=== PATIENT | female | born 1980 | race Two or more races ===

== ENCOUNTER 2019-02-22 13:26 | Inpatient (IN) | payer BC ==
[~2019-02-22] VITALS: Ht 157.5 cm; Wt 78.6 kg
[2019-02-22 13:30] VITALS: BP 138/74
--- NOTE | 2019-02-22 13:30 | NUR ---
ED Nurse Note: pt brought by RA from home due to abdominal pain aw n/v/d. s/p gallbladder revomval surgery abut 2 weeks ago. pt delivered baby 4 months ago. no breast feeding. abdominal pain started about 2 hrs ago. clear, bile vomiting noted. approximately 500ml. AAO x4. respirations even and non-labored noted. clammy skin noted. on classroom monitor. will wait for the further order.
[2019-02-22] MEDS ORDERED: Morphine Sulfate 4mg/ml Inj (IV USE ONLY) IVP ONE ×2 (13:45→15:15)
[2019-02-22] MEDS ORDERED: Pantoprazole Inj IVP ONE (13:45)
--- NOTE | 2019-02-22 13:45 | Emergency Room Report ---
History of Present Illness General Chief Complaint: Abdominal Pain Source: Patient Present Illness HPI Patient is a 38-year-old female who presented after increased upper abdominal pain. Patient reports having waxing and waning pain since approximate 3 hours ago. She reports having some hematemesis initially with some bilious vomiting. She had recent gallbladder surgery and had laparoscopic cholecystectomy at [facility]. Patient initially had been doing well postoperatively. Her surgery occurred 2 weeks ago on . Patient states that she had only been taking ibuprofen for pain intermittently. She denies any recent alcohol use. She denies prior history of hypertension or current breast-feeding. Patient had a baby approximately 4 months ago.Patient had been having postprandial diarrhea but denies any bloody stools other than on initial days postoperatively. Allergies: Coded Allergies: MEPERIDINE (Verified Allergy, Intermediate, Rash, 02/23/19) Patient History Past Medical History: see triage record Past Surgical History: paul Last Menstrual Period: 3 months ago Reviewed Nursing Documentation: PMH: Agreed; PSxH: Agreed Nursing Documentation-PMH Past Medical History: No History, Except For Hx Gastrointestinal Problems: Yes - Gallbladder removal 2 weeks ago Review of Systems All Other Systems: negative except mentioned in HPI Physical Exam Vital Signs Date Time Temp Pulse Resp B/P (MAP) Pulse Ox O2 Delivery O2 Flow Rate FiO2 02/22/19 13:24 97.5 76 22 136/98 (111) 99 Room Air Sp02 EP Interpretation: reviewed, normal General Appearance: normal inspection, alert, GCS 15, mild distress Head: atraumatic ENT: normal ENT inspection, hearing grossly normal, normal voice Neck: normal inspection, full range of motion, supple, no bony tend Respiratory: normal inspection, lungs clear, normal breath sounds, no respiratory distress, no retraction, no wheezing Cardiovascular #1: regular rate, rhythm, no edema Gastrointestinal: normal bowel sounds, soft, no guarding Genitourinary: no CVA tenderness Musculoskeletal: normal inspection, back normal, normal range of motion Neurologic: normal inspection, alert, oriented x3, responsive, agriculture instructor III-XII nml as tested, motor strength/tone normal, speech normal Psychiatric: normal inspection, judgement/insight normal, mood/affect normal Medical Decision Making Diagnostic Impression: Primary Impression: Abdominal pain Additional Impression: Pancreatitis due to common bile duct stone ER Course Patient presented for abdominal pain. Differential diagnoses included ischemic bowel, appendicitis, perforated viscus, abdominal aortic aneurysm, inferior myocardial infarction, viral gastroenteritis among others. Because of complexity of patient's case laboratory testing and imaging studies were ordered. Patient was noted to have recent surgery. She was noted to have some hematemesis after multiple episodes of emesis. Patient appears to have some evidence of tenderness to her abdomen.Laboratory testing showed some evidence of pancreatitis as well as elevated bilirubin level. Patient was noted to have significant pain was given IV narcotic pain medications as well as IV fluids. She is given IV antiemetics. Patient's hemoglobin was noted to be normal as well as her platelet count. Dr. Miguel Banda was contacted for inpatient management. Dr. Rodriguez was contacted for GI consult. Dr. House was contacted for surgical consult. Labs Test 02/22/19 13:41 02/22/19 14:30 White Blood Count 8.0 K/UL (4.8-10.8) Red Blood Count 5.03 M/UL (4.20-5.40) Hemoglobin 15.3 G/DL (12.0-16.0) Hematocrit 45.2 % (37.0-47.0) Mean Corpuscular Volume 90 FL (80-99) Mean Corpuscular Hemoglobin 30.5 PG (27.0-31.0) Mean Corpuscular Hemoglobin Concent 33.9 G/DL (32.0-36.0) Red Cell Distribution Width 11.2 % (11.6-14.8) Platelet Count 328 K/UL (150-450) Mean Platelet Volume 8.2 FL (6.5-10.1) Neutrophils (%) (Auto) 59.2 % (45.0-75.0) Lymphocytes (%) (Auto) 23.4 % (20.0-45.0) Monocytes (%) (Auto) 10.1 % (1.0-10.0) Eosinophils (%) (Auto) 6.0 % (0.0-3.0) Basophils (%) (Auto) 1.5 % (0.0-2.0) Prothrombin Time 10.1 SEC (9.30-11.50) Prothromb Time International Ratio 0.9 (0.9-1.1) Activated Partial Thromboplast Time 23 SEC (23-33) Sodium Level 141 MMOL/L (136-145) Potassium Level 4.0 MMOL/L (3.5-5.1) Chloride Level 104 MMOL/L (98-107) Carbon Dioxide Level 24 MMOL/L (21-32) Anion Gap 13 mmol/L (5-15) Blood Urea Nitrogen 16 mg/dL (7-18) Creatinine 0.8 MG/DL (0.55-1.30) Estimat Glomerular Filtration Rate > 60 mL/min (>60) Glucose Level 138 MG/DL (74-106) Calcium Level 10.1 MG/DL (8.5-10.1) Total Bilirubin 1.7 MG/DL (0.2-1.0) Direct Bilirubin 1.1 MG/DL (0.0-0.3) Aspartate Amino Transf (AST/SGOT) 651 U/L (15-37) Alanine Aminotransferase (ALT/SGPT) 905 U/L (12-78) Alkaline Phosphatase 404 U/L (46-116) Total Protein 8.2 G/DL (6.4-8.2) Albumin 4.1 G/DL (3.4-5.0) Globulin 4.1 g/dL Albumin/Globulin Ratio 1.0 (1.0-2.7) Lipase > 2000 U/L (73-393) Urine Color Yellow Urine Appearance Clear Urine pH 8 (4.5-8.0) Urine Specific [place] 1.010 (1.005-1.035) Urine Protein Negative (NEGATIVE) Urine Glucose (UA) Negative (NEGATIVE) Urine Ketones Negative (NEGATIVE) Urine Blood Negative (NEGATIVE) Urine Nitrite Negative (NEGATIVE) Urine Bilirubin Negative (NEGATIVE) Urine Urobilinogen Normal MG/DL (0.0-1.0) Urine Leukocyte Esterase Negative (NEGATIVE) Urine HCG, Qualitative Negative (NEGATIVE) Last Vital Signs Date Time Temp Pulse Resp B/P (MAP) Pulse Ox O2 Delivery O2 Flow Rate FiO2 02/22/19 13:24 97.5 76 22 136/98 (111) 99 Room Air Status: improved Disposition: ADMITTED INPATIENT Condition: Stable Scripts No Active Prescriptions or Reported Meds Mario Jacome MD Feb 22, 2019 13:45
[2019-02-22 13:48] LABS: BASOPHILS % (AUTO) 1.5 % (0.0-2.0); HEMATOCRIT 45.2 % (37.0-47.0); HEMOGLOBIN 15.3 G/DL (12.0-16.0); LYMPHOCYTES % (AUTO) 23.4 % (20.0-45.0); MEAN CORPUSCULAR VOLUME 90 FL (80-99); MONOCYTES % (AUTO) 10.1 % (1.0-10.0); NEUTROPHILS % (AUTO) 59.2 % (45.0-75.0); PLATELET COUNT 328 K/UL (150-450); RED BLOOD COUNT 5.03 M/UL (4.20-5.40); RED CELL DISTRIBUTION WIDTH 11.2 % (11.6-14.8)
[2019-02-22 13:57] LABS: ANION GAP 13 mmol/L (5-15); BLOOD UREA NITROGEN 16 mg/dL (7-18); CALCIUM 10.1 MG/DL (8.5-10.1); CARBON DIOXIDE 24 MMOL/L (21-32); CHLORIDE 104 MMOL/L (98-107); CREATININE 0.8 MG/DL (0.55-1.30); SODIUM 141 MMOL/L (136-145)
[2019-02-22 13:59] LABS: INR 0.9 (0.9-1.1)
[2019-02-22] MEDS ORDERED: Gastrograffin 30ml ORAL ONE (14:00)
[2019-02-22] MEDS ORDERED: Isovue-300 100ml vial INJ PRN (14:00)
--- NOTE | 2019-02-22 14:05 | NUR ---
ED Nurse Note: US paged.
[2019-02-22 14:08] LABS: ALANINE AMINOTRANSFERASE 905 U/L (12-78); ALBUMIN 4.1 G/DL (3.4-5.0); ALKALINE PHOSPHATASE 404 U/L (46-116); ASPARTATE AMINO TRANSFERASE 651 U/L (15-37); BILIRUBIN,TOTAL 1.7 MG/DL (0.2-1.0)
[2019-02-22 14:09] LABS: BILIRUBIN,DIRECT 1.1 MG/DL (0.0-0.3)
[2019-02-22] MEDS ORDERED: Metoclopramide 10mg/2ml Inj IVP ONE (14:15)
--- NOTE | 2019-02-22 14:53 | NUR ---
ED Nurse Note: pt finished oral contrast.
[2019-02-22 15:12] LABS: APPEARANCE,URINE CLEAR; BILIRUBIN, URINE NEGATIVE (NEGATIVE); GLUCOSE, URINE (UA) NEGATIVE (NEGATIVE); KETONES,URINE NEGATIVE (NEGATIVE); LEUKOCYTE ESTERASE ,URINE NEGATIVE (NEGATIVE); NITRITE,URINE NEGATIVE (NEGATIVE); PH,URINE 8 (4.5-8.0); PROTEIN,URINE NEGATIVE (NEGATIVE); UROBILINOGEN,URINE NORMAL MG/DL (0.0-1.0)
[2019-02-22 15:16] LABS: COLOR,URINE YELLOW
--- NOTE | 2019-02-22 15:26 | NUR ---
ED Nurse Note: took all the belonings.
[2019-02-22 15:35] VITALS: BP 137/70
--- NOTE | 2019-02-22 15:39 | NUR ---
ED Nurse Note: pending CT scan. pt will be transfer to TELE after CT.
--- NOTE | 2019-02-22 15:55 | NUR ---
ED Nurse Note: reports given to TRAVIS Joyner.
--- NOTE | 2019-02-22 16:38 | NUR ---
ED Nurse Note: pt went to CT. will be transferred to TELE after CT done.
--- NOTE | 2019-02-22 16:53 | NUR ---
NURSE NOTES: Report received from MARIOLA Barajas RN. Pt. came in from ER via [email or web address]. IN RA. Pain 5/10. Morphine 4mg had been given at ER. playground monitor applied, gown changed. Made Pt. comfortable. Belongings checked, only prescription glasses and Iphone with Pt. at this time. Belongings list updated. signed and filed. Hospital rules communicated with Pt. R AC 20g IV patent, flushed and SL. Bed on lowest position, side rails upx2, brakes engaged. Call light within easy reach.
[2019-02-22 17:00] VITALS: BP 124/82
--- NOTE | 2019-02-22 17:33 | NUR ---
NURSE NOTES: Left a message to Dr. Banda regarding Pt's arrival. Waiting for a call back.
--- NOTE | 2019-02-22 17:50 | NUR ---
NURSE NOTES: second message left to Dr. Banda. Waiting for a call back for admission orders.
--- NOTE | 2019-02-22 18:17 | Diagnostic Imaging Report ---
Indication: Abdominal pain Technique: Continuous helical transaxial imaging of the abdomen and pelvis was obtained from the lung bases to the pubic symphysis during intravenous contrast administration. Coronal 2-D reformats were also obtained. Study obtained in a Siemens sensation [address] Automatic Exposure Control was utilized. Total Dose length Product (DLP): 916.[address] Dose Index Volume (CTDIvol): 18.4 mGy Comparison: None Findings: Lung bases are clear. Gallbladder is absent. The pancreas is enlarged and there is peripancreatic fluid and ill-defined soft tissue attenuation, consistent with acute pancreatitis. There is no biliary ductal dilatation identified. Liver appears slightly hypodense. The spleen, both kidneys and adrenal glands are unremarkable. There is a left ovarian cyst measuring approximately 3 cm. IMPRESSION: Acute pancreatitis. Status post cholecystectomy. Left ovarian cyst Fatty liver [facility] has communicated the preliminary results to the Emergency Department. Their findings are largely concordant with this report. The CT scanner at [facility] is accredited by the [employer] and the scans are performed using dose optimization techniques as appropriate to a performed exam including Automatic Exposure control.
--- NOTE | 2019-02-22 18:24 | Diagnostic Imaging Report ---
Indication: Abdominal pain. History of cholecystectomy 2 weeks earlier no previous studies for comparison. Technique: Grayscale and duplex Doppler imaging of the abdomen performed. Comparison: None Findings: The liver is echogenic. Doppler interrogation of the main portal vein shows patency with hepatopedal, monophasic flow. There is no biliary ductal dilatation identified. Gallbladder is absent. CBD is 4.4 mm. There demonstrated part of the aorta and IVC show no definite abnormalities. Pancreas is poorly seen due to bowel gas. Both kidneys appear unremarkable. There is no hydronephrosis. IMPRESSION: Fatty liver. Pancreas is not visualized well. CT showed evidence of acute pancreatitis. Please refer to the CT report.
[2019-02-22] MEDS ORDERED: Morphine Sulfate 2mg/ml Inj(IV/IM USE ONLY) IVP PRN (18:30)
[2019-02-22] MEDS ORDERED: Morphine Sulfate 4mg/ml Inj (IV USE ONLY) IVP PRN (18:30)
--- NOTE | 2019-02-22 19:35 | NUR ---
NURSE NOTES: Received patient from TRAVIS Joyner, patient in stable condition, AOx4,ambulatory, reports pain 6 on scale 0-10, upper abdomen, IV site on R AC G20, asymptomatic, intact, patent, bed lowest position, brakes on, call light within reach, will continue to monitor and reassess. Family at bed side.
--- NOTE | 2019-02-22 19:44 | NUR ---
NURSE NOTES: Dr. Rodriguez and Dr. House aware of consult.
--- NOTE | 2019-02-22 19:45 | NUR ---
HAND-OFF: Report given to TRAVIS Howard. Pt in stable condition. Family at bedside.
[2019-02-22 20:00] VITALS: BP 130/76
--- NOTE | 2019-02-22 20:13 | Consultation ---
History of Present Illness General Reason for Hospitalization: Abdominal Pain Present Illness HPI Patient is a 38-year-old female who presented after increased upper abdominal pain for 1 day. She reports having some hematemesis initially with some bilious vomiting. She had recent gallbladder surgery and had laparoscopic cholecystectomy at [facility] by Dr. Can. Patient initially had been doing well postoperatively. Her surgery occurred 2 weeks ago on . Patient states that she had only been taking ibuprofen for pain intermittently. She denies any recent alcohol use. She denies prior history of hypertension or current breast-feeding. Patient had a baby approximately 4 months ago.Patient had been having postprandial diarrhea but denies any bloody stools other than on initial days postoperatively. now with elevated lft's. CT and US as noted. surgery called to evaluate and assist with care Allergies: Coded Allergies: MEPERIDINE (Verified Allergy, Intermediate, Rash, 02/23/19) Medication History No Active Prescriptions or Reported Meds Patient History History Provided By: Patient, Medical Record, PMD Healthcare decision maker N Resuscitation status Advanced Directive on File No Past Medical/Surgical History Past Medical/Surgical History: (1) Abdominal pain (2) Pancreatitis due to common bile duct stone Review of Systems Review of Symptoms General ROS: no weight loss or fever Psychological ROS: no depression or mood changes, no memory loss Ophthalmic ROS: no visual changes or eye irritation ENT ROS: no nasal congestion, hearing loss, dizziness Allergy and Immunology ROS: no allergic symptoms or urticaria Hematological and Lymphatic ROS: no swollen glands, unusual bleeding or bruising Endocrine ROS: no polyuria, polydipsia, weight changes, temperature intolerance Respiratory ROS: no cough, shortness of breath, or wheezing Cardiovascular ROS: no chest pain or dyspnea on exertion Gastrointestinal ROS: denies abdominal pain, bright red blood in stool. Musculoskeletal ROS: no myalgias or arthralgias Neurological ROS: no TIA or stroke symptoms Dermatological ROS: no new or changing skin lesions, rashes or pruritis Physical Exam Physical Exam General appearance: alert, cooperative, no distress, appears stated age Head: Normocephalic, without obvious abnormality, atraumatic Eyes: conjunctivae/corneas clear. PERRL, EOM's intact. Fundi benign Throat: Lips, mucosa, and tongue normal. Teeth and gums normal Neck: supple, symmetrical, trachea midline, no adenopathy, thyroid: not enlarged, symmetric, no tenderness/mass/nodules, no carotid bruit and no JVD Lungs: clear to auscultation bilaterally Heart: regular rate and rhythm, S1, S2 normal, no murmur, click, rub or gallop Abdomen: soft, non-tender. Bowel sounds normal. No masses, no organomegaly Extremities: extremities normal, atraumatic, no cyanosis or edema Pulses: 2+ and symmetric Skin: Skin color, texture, turgor normal. No rashes or lesions Neurologic: Grossly normal Last 24 Hour Vital Signs Date Time Temp Pulse Resp B/P (MAP) Pulse Ox O2 Delivery O2 Flow Rate FiO2 02/22/19 17:34 Room Air 02/22/19 16:37 98.1 60 16 127/71 99 Room Air 02/22/19 15:35 98.3 65 15 137/70 100 Room Air 02/22/19 13:30 76 22 Room Air 02/22/19 13:30 98.1 71 19 138/74 100 Room Air 02/22/19 13:24 97.5 76 22 136/98 (111) 99 Room Air Laboratory Tests Test 02/22/19 13:41 02/22/19 14:30 White Blood Count 8.0 K/UL (4.8-10.8) Red Blood Count 5.03 M/UL (4.20-5.40) Hemoglobin 15.3 G/DL (12.0-16.0) Hematocrit 45.2 % (37.0-47.0) Mean Corpuscular Volume 90 FL (80-99) Mean Corpuscular Hemoglobin 30.5 PG (27.0-31.0) Mean Corpuscular Hemoglobin Concent 33.9 G/DL (32.0-36.0) Red Cell Distribution Width 11.2 % (11.6-14.8) L Platelet Count 328 K/UL (150-450) Mean Platelet Volume 8.2 FL (6.5-10.1) Neutrophils (%) (Auto) 59.2 % (45.0-75.0) Lymphocytes (%) (Auto) 23.4 % (20.0-45.0) Monocytes (%) (Auto) 10.1 % (1.0-10.0) H Eosinophils (%) (Auto) 6.0 % (0.0-3.0) H Basophils (%) (Auto) 1.5 % (0.0-2.0) Prothrombin Time 10.1 SEC (9.30-11.50) Prothromb Time International Ratio 0.9 (0.9-1.1) Activated Partial Thromboplast Time 23 SEC (23-33) Sodium Level 141 MMOL/L (136-145) Potassium Level 4.0 MMOL/L (3.5-5.1) Chloride Level 104 MMOL/L (98-107) Carbon Dioxide Level 24 MMOL/L (21-32) Anion Gap 13 mmol/L (5-15) Blood Urea Nitrogen 16 mg/dL (7-18) Creatinine 0.8 MG/DL (0.55-1.30) Estimat Glomerular Filtration Rate > 60 mL/min (>60) Glucose Level 138 MG/DL (74-106) H Calcium Level 10.1 MG/DL (8.5-10.1) Total Bilirubin 1.7 MG/DL (0.2-1.0) H Direct Bilirubin 1.1 MG/DL (0.0-0.3) H Aspartate Amino Transf (AST/SGOT) 651 U/L (15-37) H Alanine Aminotransferase (ALT/SGPT) 905 U/L (12-78) H Alkaline Phosphatase 404 U/L (46-116) H Total Protein 8.2 G/DL (6.4-8.2) Albumin 4.1 G/DL (3.4-5.0) Globulin 4.1 g/dL Albumin/Globulin Ratio 1.0 (1.0-2.7) Lipase > 2000 U/L (73-393) H Urine Color Yellow Urine Appearance Clear Urine pH 8 (4.5-8.0) Urine Specific [place] 1.010 (1.005-1.035) Urine Protein Negative (NEGATIVE) Urine Glucose (UA) Negative (NEGATIVE) Urine Ketones Negative (NEGATIVE) Urine Blood Negative (NEGATIVE) Urine Nitrite Negative (NEGATIVE) Urine Bilirubin Negative (NEGATIVE) Urine Urobilinogen Normal MG/DL (0.0-1.0) Urine Leukocyte Esterase Negative (NEGATIVE) Urine HCG, Qualitative Negative (NEGATIVE) Height (Feet): 5 Height (Inches): 2.00 Weight (Pounds): 169 Medications Current Medications Medications (Trade) Dose Ordered Sig/Misael Route PRN Reason Start Time Stop Time Status Last Admin Dose Admin Iopamidol (Isovue-300 100ml) 100 ml NOW PRN INJ Radiology Procedure 02/22/19 14:00 02/24/19 13:59 Morphine Sulfate (Morphine Sulfate) 2 mg Q4H PRN IVP PAIN 4-6 02/22/19 18:30 03/01/19 18:29 Morphine Sulfate (Morphine Sulfate) 4 mg Q3H PRN IVP Severe Pain (Pain Scale 7-10) 02/22/19 18:30 03/01/19 18:29 Ondansetron HCl (Zofran) 4 mg Q6H PRN IVP Nausea & Vomiting 02/22/19 18:30 03/24/19 18:29 Pantoprazole (Protonix) 40 mg DAILY IVP 02/23/19 09:00 03/25/19 08:59 Sodium Chloride 1,000 ml @ 100 mls/hr Q10H IV 02/22/19 18:30 03/24/19 18:29 02/22/19 18:30 Assessment/Plan Problem List: (1) Pancreatitis due to common bile duct stone ICD Codes: K85.90 - Acute pancreatitis without necrosis or infection, unspecified; K80.50 - Calculus of bile duct without cholangitis or cholecystitis without obstruction SNOMED: 63230884 (2) Abdominal pain Assessment & Plan: 30-year-old female with abdominal pain nausea vomiting. Leukocytosis normal. LFTs elevated. T bili elevated on admission. Elevated amylase and lipase indicative of pancreatitis. Ultrasound and CT noted. Potentially retained common bile duct stone which is passed or still present within the duct. Exam improved. Overall improved. No acute surgical intervention indicated at this time. Will discuss with GI as patient should probably have an MRCP to ensure common bile duct clear. Following that if necessary ERCP if stone present. If common duct cleared and improving can resume diet. Trend labs. We will follow with recommendations. Thank you for this consultation npo MRCP trend labs iv fluids will follow with recs thank you ICD Codes: R10.9 - Unspecified abdominal pain SNOMED: 44236521 Tino House Feb 22, 2019 20:13
[2019-02-23] VITALS: BP 135/69
[2019-02-23 03:52] VITALS: BP 96/62
--- NOTE | 2019-02-23 05:00 | NUR ---
NURSE NOTES: Received patient from tele. AAO x 4, on room air. pt is ambulatory, c/o abd gas pain. IV site intact and running NS 100ml/hr. Pt is on NPO. Bed locked, lowest position, alarm on, call light within reach. Will continue to monitor.
[2019-02-23] MEDS ORDERED: Morphine Sulfate 4mg/ml Inj (IV USE ONLY) IVP PRN (06:30)
[2019-02-23] MEDS ORDERED: Morphine Sulfate 2mg/ml Inj(IV/IM USE ONLY) IVP PRN (06:30)
--- NOTE | 2019-02-23 07:13 | NUR ---
NURSE NOTES: Left message Dr. Chase for abd gas pain. Waiting for call. Addendum: 02/23/19 at 0809 by THERESA PACE RN RN NURSE NOTES: Left message Dr. Banda, not Dr. Chase.
--- NOTE | 2019-02-23 07:40 | NUR ---
HAND-OFF: Report given to Sharona Sims RN.
--- NOTE | 2019-02-23 07:40 | NUR ---
NURSE NOTES: Received order from Dr. Banda. Simethicone 80mg quid prn abd gas pain.
--- NOTE | 2019-02-23 07:51 | NUR ---
pt in bed with no sob nor in any form of distress noted. Breathing regular and unlabored. denies pain at this time. kept NPO. will continue to monitor
[2019-02-23 08:00] LABS: BASOPHILS % (AUTO) 1.4 % (0.0-2.0); EOSINOPHILS % (AUTO) 3.7 % (0.0-3.0); HEMATOCRIT 40.2 % (37.0-47.0); HEMOGLOBIN 13.5 G/DL (12.0-16.0); LYMPHOCYTES % (AUTO) 17.4 % (20.0-45.0); MEAN CORPUSCULAR VOLUME 92 FL (80-99); MONOCYTES % (AUTO) 11.3 % (1.0-10.0); NEUTROPHILS % (AUTO) 66.2 % (45.0-75.0); PLATELET COUNT 259 K/UL (150-450); RED BLOOD COUNT 4.39 M/UL (4.20-5.40); RED CELL DISTRIBUTION WIDTH 11.9 % (11.6-14.8); WHITE BLOOD COUNT 8.3 K/UL (4.8-10.8)
[2019-02-23 08:35] LABS: ALANINE AMINOTRANSFERASE 562 U/L (12-78); ALBUMIN 3.4 G/DL (3.4-5.0); ALBUMIN/GLOBULIN RATIO 0.9 (1.0-2.7); ALKALINE PHOSPHATASE 320 U/L (46-116); AMYLASE 377 U/L (25-115); ANION GAP 11 mmol/L (5-15); ASPARTATE AMINO TRANSFERASE 201 U/L (15-37); BILIRUBIN,TOTAL 0.8 MG/DL (0.2-1.0); BLOOD UREA NITROGEN 16 mg/dL (7-18); CALCIUM 8.6 MG/DL (8.5-10.1); CARBON DIOXIDE 23 MMOL/L (21-32); CHLORIDE 108 MMOL/L (98-107); CREATININE 0.7 MG/DL (0.55-1.30); POTASSIUM 3.5 MMOL/L (3.5-5.1); SODIUM 142 MMOL/L (136-145)
[2019-02-23] MEDS: Simethicone 80mg tab ORAL PRN ×3 (08:53→22:35)
[2019-02-23] MEDS: Pantoprazole Inj IVP SCH (08:53)
[2019-02-23] MEDS ORDERED: Pantoprazole Inj IVP SCH (09:00)
--- NOTE | 2019-02-23 11:13 | GI Initial Consult Note ---
History of Present Illness General Date patient seen: Feb 23, 2019 Time patient seen: 11:11 Reason for Hospitalization: Abdominal Pain Referring physician: GRACE Reason for Consultation: Common bile duct stone Present Illness HPI Patient is a 38-year-old female who presented after increased upper abdominal pain. Patient reports having waxing and waning pain since approximate 3 hours ago. She reports having some hematemesis initially with some bilious vomiting. She had recent gallbladder surgery and had laparoscopic cholecystectomy at [facility]. Patient initially had been doing well postoperatively. Her surgery occurred 2 weeks ago on . Patient states that she had only been taking ibuprofen for pain intermittently. She denies any recent alcohol use. She denies prior history of hypertension or current breast-feeding. Patient had a baby approximately 4 months ago.Patient had been having postprandial diarrhea but denies any bloody stools other than on initial days postoperatively. GI consulted for pancreatitis secondary to possible common bile duct stone. Patient seen, awake alert and oriented x4 no apparent distress. Had reports of severe abdominal pain. Patient presents with elevated LFTs, lipase levels over 1999. Denies any recent alcohol or tobacco use. Denies any hematemesis, coffee grounds. As noted above had recent cholecystectomy approximately 2 weeks ago. Abdominal pelvis CT and abdominal ultrasound reviewed. Home Meds No Active Prescriptions or Reported Meds Med list reviewed/reconciled: Yes Allergies: Coded Allergies: MEPERIDINE (Verified Allergy, Intermediate, Rash, 02/23/19) Patient History History Provided By: Patient, Medical Record PMH Narrative Past Medical History: see triage record Past Surgical History: paul Last Menstrual Period: 3 months ago Reviewed Nursing Documentation: PMH: Agreed; PSxH: Agreed Nursing Documentation-PM Past Medical History: No History, Except For Hx Gastrointestinal Problems: Yes - Gallbladder removal 2 weeks ago Past Surgical History: cholecystectomy Social History: Denies: smoking, alcohol use, drug use, other Review of Systems All Other Systems: negative except mentioned in HPI Physical Exam Vital Signs Date Time Temp Pulse Resp B/P (MAP) Pulse Ox O2 Delivery O2 Flow Rate FiO2 02/22/19 13:24 97.5 76 22 136/98 (111) 99 Room Air Sp02 EP Interpretation: reviewed, normal Labs Laboratory Tests Test 02/22/19 13:41 02/22/19 14:30 02/23/19 07:19 White Blood Count 8.0 K/UL (4.8-10.8) 8.3 K/UL (4.8-10.8) Red Blood Count 5.03 M/UL (4.20-5.40) 4.39 M/UL (4.20-5.40) Hemoglobin 15.3 G/DL (12.0-16.0) 13.5 G/DL (12.0-16.0) Hematocrit 45.2 % (37.0-47.0) 40.2 % (37.0-47.0) Mean Corpuscular Volume 90 FL (80-99) 92 FL (80-99) Mean Corpuscular Hemoglobin 30.5 PG (27.0-31.0) 30.8 PG (27.0-31.0) Mean Corpuscular Hemoglobin Concent 33.9 G/DL (32.0-36.0) 33.6 G/DL (32.0-36.0) Red Cell Distribution Width 11.2 % (11.6-14.8) L 11.9 % (11.6-14.8) Platelet Count 328 K/UL (150-450) 259 K/UL (150-450) Mean Platelet Volume 8.2 FL (6.5-10.1) 8.2 FL (6.5-10.1) Neutrophils (%) (Auto) 59.2 % (45.0-75.0) 66.2 % (45.0-75.0) Lymphocytes (%) (Auto) 23.4 % (20.0-45.0) 17.4 % (20.0-45.0) L Monocytes (%) (Auto) 10.1 % (1.0-10.0) H 11.3 % (1.0-10.0) H Eosinophils (%) (Auto) 6.0 % (0.0-3.0) H 3.7 % (0.0-3.0) H Basophils (%) (Auto) 1.5 % (0.0-2.0) 1.4 % (0.0-2.0) Prothrombin Time 10.1 SEC (9.30-11.50) 10.8 SEC (9.30-11.50) Prothromb Time International Ratio 0.9 (0.9-1.1) 1.0 (0.9-1.1) Activated Partial Thromboplast Time 23 SEC (23-33) 26 SEC (23-33) Sodium Level 141 MMOL/L (136-145) 142 MMOL/L (136-145) Potassium Level 4.0 MMOL/L (3.5-5.1) 3.5 MMOL/L (3.5-5.1) Chloride Level 104 MMOL/L (98-107) 108 MMOL/L (98-107) H Carbon Dioxide Level 24 MMOL/L (21-32) 23 MMOL/L (21-32) Anion Gap 13 mmol/L (5-15) 11 mmol/L (5-15) Blood Urea Nitrogen 16 mg/dL (7-18) 16 mg/dL (7-18) Creatinine 0.8 MG/DL (0.55-1.30) 0.7 MG/DL (0.55-1.30) Estimat Glomerular Filtration Rate > 60 mL/min (>60) > 60 mL/min (>60) Glucose Level 138 MG/DL (74-106) H 81 MG/DL (74-106) Calcium Level 10.1 MG/DL (8.5-10.1) 8.6 MG/DL (8.5-10.1) Total Bilirubin 1.7 MG/DL (0.2-1.0) H 0.8 MG/DL (0.2-1.0) Direct Bilirubin 1.1 MG/DL (0.0-0.3) H Aspartate Amino Transf (AST/SGOT) 651 U/L (15-37) H 201 U/L (15-37) H Alanine Aminotransferase (ALT/SGPT) 905 U/L (12-78) H 562 U/L (12-78) H Alkaline Phosphatase 404 U/L (46-116) H 320 U/L (46-116) H Total Protein 8.2 G/DL (6.4-8.2) 7.0 G/DL (6.4-8.2) Albumin 4.1 G/DL (3.4-5.0) 3.4 G/DL (3.4-5.0) Globulin 4.1 g/dL 3.6 g/dL Albumin/Globulin Ratio 1.0 (1.0-2.7) 0.9 (1.0-2.7) L Lipase > 2000 U/L (73-393) H > 2000 U/L (73-393) H Urine Color Yellow Urine Appearance Clear Urine pH 8 (4.5-8.0) Urine Specific [place] 1.010 (1.005-1.035) Urine Protein Negative (NEGATIVE) Urine Glucose (UA) Negative (NEGATIVE) Urine Ketones Negative (NEGATIVE) Urine Blood Negative (NEGATIVE) Urine Nitrite Negative (NEGATIVE) Urine Bilirubin Negative (NEGATIVE) Urine Urobilinogen Normal MG/DL (0.0-1.0) Urine Leukocyte Esterase Negative (NEGATIVE) Urine HCG, Qualitative Negative (NEGATIVE) Erythrocyte Sedimentation Rate 17 MM/HR (0-20) C-Reactive Protein, Quantitative 2.2 mg/dL (0.00-0.90) H Amylase Level 377 U/L (25-115) H General Appearance: well appearing, no apparent distress, alert Head: normocephalic EENT: PERRL/EOMI, normal ENT inspection Neck: supple Respiratory: normal breath sounds, no respiratory distress Cardiovascular: normal rate Gastrointestinal: normal inspection, non tender, soft, normal bowel sounds, non -distended Rectal: deferred Genitourinary: no CVA tenderness Musculoskeletal: normal inspection, back normal Neurologic: normal inspection, alert, oriented x3, responsive Psychiatric: normal inspection, judgement/insight normal, memory normal Skin: normal inspection, normal color, no rash, warm/dry, palpation normal, well hydrated Lymphatic: normal inspection, no adenopathy Current Medications Current Medications Medications (Trade) Dose Ordered Sig/Misael Route PRN Reason Start Time Stop Time Status Last Admin Dose Admin Iopamidol (Isovue-300 100ml) 100 ml NOW PRN INJ Radiology Procedure 02/23/19 14:00 02/24/19 13:59 Morphine Sulfate (Morphine Sulfate) 2 mg Q4H PRN IVP PAIN 4-6 02/23/19 06:30 03/01/19 18:29 Morphine Sulfate (Morphine Sulfate) 4 mg Q3H PRN IVP Severe Pain (Pain Scale 7-10) 02/23/19 06:30 03/01/19 18:29 Ondansetron HCl (Zofran) 4 mg Q6H PRN IVP Nausea & Vomiting 02/23/19 06:30 03/24/19 18:29 Pantoprazole (Protonix) 40 mg DAILY IVP 02/23/19 09:00 03/25/19 08:59 02/23/19 08:53 Simethicone (Mylicon) 80 mg QIDPRN PRN ORAL abdominal gas pain 02/23/19 08:15 03/25/19 08:14 02/23/19 08:53 Sodium Chloride 1,000 ml @ 100 mls/hr Q10H IV 02/23/19 05:15 03/24/19 18:29 02/23/19 05:54 GI: Plan Problems: (1) Abdominal pain (2) Pancreatitis due to common bile duct stone Plan MRCP ordered, will consider ERCP if necessary Maintain n.p.o. plus IV fluids Pain management Zofran as needed Trend LFTs, lipase We will follow with additional recommendations post imaging and or procedure Discussed with Dr. Goss. Thank you for this patient referral, we will follow. The patient was seen and examined at bedside and all new and available data was reviewed in the patients chart. I agree with the above findings, impression and plan. (Patient seen earlier today. Signature stamp does not reflect patient encounter time.). - [facility] ROX[facility] Feb 23, 2019 11:13
[2019-02-23 12:59] VITALS: BP 132/78
--- NOTE | 2019-02-23 13:22 | NUR ---
*-* NO INSURANCE INFORMATION IN THE BAR UNABLE TO SEND CLINICALS OR REVIEWS *-*
[2019-02-23] MEDS ORDERED: Isovue-300 100ml vial INJ PRN (14:00)
[2019-02-23 16:00] VITALS: BP 104/70
--- NOTE | 2019-02-23 16:19 | Diagnostic Imaging Report ---
Indication: Pancreatitis. Abdominal pain Technique: MRI of the abdomen was performed in a 1.5 Nany magnet. Pulse sequences obtained include coronal and axial T2 single shot fast spin echo breathhold and respiratory gated coronal T2 3-D M.R.C.P.; this data set was displayed in different projections or MIPs. In addition, multiple coronal oblique thin T2 weighted, fat saturated SE sequences obtained through the CBD. Comparison: None Findings: There is peripancreatic, T2 hyperintense fluid and inflammation consistent with pancreatitis. There is no biliary ductal dilatation identified. There is no evidence of choledocholithiasis. The main pancreatic duct is nondilated. There is trace ascites. The liver and spleen are unremarkable. Kidneys are unremarkable. There is no adrenal mass. Gallbladder is absent. IMPRESSION: Acute pancreatitis. Negative exam otherwise
--- NOTE | 2019-02-23 17:07 | NUR ---
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 Status post cholecystectomy. Left ovarian cyst. Fatty liver US Abdomen: Fatty liver. Pancreas is not visualized well IS: Zofran 4mg IVP NS 1000ml IV Protonix IVP Morphine 4mg IVP Gastrograffin 30ml oral Reglan 10mg IVP Admitted to Med-surg Med-surg status DCP: Pending Hospital Stay
--- NOTE | 2019-02-23 19:07 | NUR ---
HAND-OFF: Report given to TRAVIS miller.
--- NOTE | 2019-02-23 19:09 | NUR ---
NURSE NOTES: Received patient in bed. AAO x 4, on room air. pt is ambulatory. No pain. IV infiltration noted and new IV insertion need. Pt is on NPO. Bed locked, lowest position, alarm on, call light within reach. Will continue to monitor.
--- NOTE | 2019-02-23 19:15 | History and Physical Report ---
DATE OF ADMISSION: 02/22/2019 REASON FOR ADMISSION: Pancreatitis and hepatitis. HISTORY OF PRESENT ILLNESS: The patient is a very pleasant 38-year-old female who underwent a lap cholecystectomy two weeks ago. The patient was noted to have abdominal pain and discomfort. The patient was seen in the emergency room, was noted to have elevated liver enzymes as well as elevated pancreatic enzymes. The patient noted the pain to be persistent for approximately three hours. The patient is admitted for evaluation. PAST MEDICAL HISTORY: Notable for recent cholecystectomy for gallstones. MEDICATIONS: Reviewed. ALLERGIES: Reviewed. SOCIAL HISTORY: The patient is otherwise independent. PHYSICAL EXAMINATION: GENERAL: A well-developed female. VITAL SIGNS: Otherwise stable with blood pressure slightly elevated. HEENT: Negative. NECK: Supple. LUNGS: Fairly clear and symmetric. CARDIAC: S1, S2. Regular rate and rhythm. ABDOMEN: Right lower quadrant tenderness. EXTREMITIES: No cyanosis, clubbing, or edema. LABORATORY DATA: Reviewed with significant elevated liver enzymes and pancreatic enzymes. IMPRESSION: 1. Possibility of retained common bile duct stone. 2. Pancreatitis, likely associated hepatitis as result of the above. 3. Abdominal pain. RECOMMENDATIONS: 1. Supportive care. 2. NPO. 3. IV hydration. 4. Surgical and GI evaluation to follow. The patient may need ERCP, unclear at this time. 5. We will follow and recommend further and hope continue to see improvement. 6. Recheck labs in the morning and optimize, and discharge once all cleared and laboratory data improves. Miguel Banda M.D. DR: REANNA JOB#: [id number] CC: [place]
[2019-02-23 20:00] VITALS: BP 109/73
--- NOTE | 2019-02-23 20:11 | General Progress Note ---
Assessment/Plan Assessment/Plan: Dictated Subjective Allergies: Coded Allergies: MEPERIDINE (Verified Allergy, Intermediate, Rash, 02/23/19) Objective Last 24 Hour Vital Signs Date Time Temp Pulse Resp B/P (MAP) Pulse Ox O2 Delivery O2 Flow Rate FiO2 02/23/19 16:00 98.6 72 18 104/70 (81) 98 02/23/19 12:59 98.1 68 18 132/78 (96) 97 02/23/19 12:38 98.3 02/23/19 09:32 Room Air 02/23/19 04:00 91 02/23/19 03:52 98.3 71 96/62 (73) 97 02/23/19 00:00 98.3 71 135/69 (91) 97 02/23/19 00:00 72 02/22/19 21:00 Room Air Intake and Output 02/22/19 02/23/19 18:59 06:59 Intake Total 1000 ml 100 ml Balance 1000 ml 100 ml Intake Oral 0 ml IV Total 1000 ml 100 ml # Voids 2 # Bowel Movements 1 Laboratory Tests 02/23/19 07:19: White Blood Count 8.3, Red Blood Count 4.39, Hemoglobin 13.5, Hematocrit 40.2, Mean Corpuscular Volume 92, Mean Corpuscular Hemoglobin 30.8, Mean Corpuscular Hemoglobin Concent 33.6, Red Cell Distribution Width 11.9, Platelet Count 259, Mean Platelet Volume 8.2, Neutrophils (%) (Auto) 66.2, Lymphocytes (%) (Auto) 17.4L, Monocytes (%) (Auto) 11.3H, Eosinophils (%) (Auto) 3.7H, Basophils (%) ( Auto) 1.4, Erythrocyte Sedimentation Rate 17, Prothrombin Time 10.8, Prothromb Time International Ratio 1.0, Activated Partial Thromboplast Time 26, Sodium Level 142, Potassium Level 3.5, Chloride Level 108H, Carbon Dioxide Level 23, Anion Gap 11, Blood Urea Nitrogen 16, Creatinine 0.7, Estimat Glomerular Filtration Rate > 60, Glucose Level 81, Calcium Level 8.6, Total Bilirubin 0.8, Aspartate Amino Transf (AST/SGOT) 201H, Alanine Aminotransferase (ALT/SGPT) 562H , Alkaline Phosphatase 320H, C-Reactive Protein, Quantitative 2.2H, Total Protein 7.0, Albumin 3.4, Globulin 3.6, Albumin/Globulin Ratio 0.9L, Amylase Level 377H, Lipase > 2000H Height (Feet): 5 Height (Inches): 2.00 Weight (Pounds): 169 Luis Rodriguez MD Feb 23, 2019 20:11
--- NOTE | 2019-02-23 22:41 | General Progress Note ---
Assessment/Plan Assessment/Plan: GI Consult Dictated Suspect passed CBD stone uncomplicated gallstone pancreatitis Begin clears in am if stable Thank you Luis Rodriguez MD Subjective Allergies: Coded Allergies: MEPERIDINE (Verified Allergy, Intermediate, Rash, 02/23/19) Objective Last 24 Hour Vital Signs Date Time Temp Pulse Resp B/P (MAP) Pulse Ox O2 Delivery O2 Flow Rate FiO2 02/23/19 20:00 99.1 70 16 109/73 (85) 97 02/23/19 16:00 98.6 72 18 104/70 (81) 98 02/23/19 12:59 98.1 68 18 132/78 (96) 97 02/23/19 12:38 98.3 02/23/19 09:32 Room Air 02/23/19 04:00 91 02/23/19 03:52 98.3 71 96/62 (73) 97 02/23/19 00:00 98.3 71 135/69 (91) 97 02/23/19 00:00 72 Intake and Output 02/22/19 02/23/19 18:59 06:59 Intake Total 1000 ml 100 ml Balance 1000 ml 100 ml Intake Oral 0 ml IV Total 1000 ml 100 ml # Voids 2 # Bowel Movements 1 Laboratory Tests 02/23/19 07:19: White Blood Count 8.3, Red Blood Count 4.39, Hemoglobin 13.5, Hematocrit 40.2, Mean Corpuscular Volume 92, Mean Corpuscular Hemoglobin 30.8, Mean Corpuscular Hemoglobin Concent 33.6, Red Cell Distribution Width 11.9, Platelet Count 259, Mean Platelet Volume 8.2, Neutrophils (%) (Auto) 66.2, Lymphocytes (%) (Auto) 17.4L, Monocytes (%) (Auto) 11.3H, Eosinophils (%) (Auto) 3.7H, Basophils (%) ( Auto) 1.4, Erythrocyte Sedimentation Rate 17, Prothrombin Time 10.8, Prothromb Time International Ratio 1.0, Activated Partial Thromboplast Time 26, Sodium Level 142, Potassium Level 3.5, Chloride Level 108H, Carbon Dioxide Level 23, Anion Gap 11, Blood Urea Nitrogen 16, Creatinine 0.7, Estimat Glomerular Filtration Rate > 60, Glucose Level 81, Calcium Level 8.6, Total Bilirubin 0.8, Aspartate Amino Transf (AST/SGOT) 201H, Alanine Aminotransferase (ALT/SGPT) 562H , Alkaline Phosphatase 320H, C-Reactive Protein, Quantitative 2.2H, Total Protein 7.0, Albumin 3.4, Globulin 3.6, Albumin/Globulin Ratio 0.9L, Amylase Level 377H, Lipase > 2000H Height (Feet): 5 Height (Inches): 2.00 Weight (Pounds): 169 Luis Rodriguez MD Feb 23, 2019 22:41
--- NOTE | 2019-02-23 23:45 | Consultation ---
DATE OF CONSULTATION: 02/23/2019 GASTROENTEROLOGY CONSULTATION CONSULTING PHYSICIAN: Luis Rodriguez M.D. REFERRING PHYSICIAN: Miguel Banda M.D. CHIEF COMPLAINT: I was asked to see this patient by Dr. Banda for evaluation of abdominal issues. HISTORY OF PRESENT ILLNESS: The patient is a pleasant 38-year-old woman, who had a baby about 4 months ago. She has had bouts of abdominal pain for about 2 months and was to be scheduled for elective cholecystectomy. However, a recent severe attack brought her to [facility] in [place] where she had a more emergent cholecystectomy, which was done laparoscopically. She says postoperatively, her liver tests remain elevated and she was told that there is a suspicion of retained common bile duct stone, but since she improved, she was discharged home and she was doing well until 2 days prior to admission when she started noticing severe abdominal pain in the mid epigastric region radiating to the back. She does not drink alcohol, but evaluation showed pancreatitis. The CT scan and abdominal ultrasound have been noted and subsequently an MRI was also done showing no common bile duct stones. PAST MEDICAL HISTORY: Otherwise unremarkable. FAMILY HISTORY: Noncontributory. SOCIAL HISTORY: The patient is . Has a recent 4-month-old child. She does not smoke or drink. REVIEW OF SYSTEMS: Otherwise negative. PHYSICAL EXAMINATION: GENERAL: Well-developed, well-nourished woman, seen in her room with at bedside. HEENT: Normocephalic, atraumatic. Sclerae anicteric. Oropharynx clear. NECK: Supple. CHEST: Clear to auscultation. CARDIOVASCULAR: Revealed a regular rate. ABDOMEN: Soft. Essentially nontender. Good bowel sounds. EXTREMITIES: Revealed no edema. LABORATORY DATA: Noted. IMAGING STUDIES: Noted. ASSESSMENT: This patient presents with an episode of pancreatitis, which is resolved. The patient has no tenderness on examination and she said that her pain is also resolved. She likely had a common bile duct stone, which may have passed resulting in the pancreatitis. This is consistent with the patient's self-reported history of elevated liver tests postcholecystectomy. The patient should therefore be managed conservatively. Her diet can be started tomorrow with clear liquids and advance as tolerated. Her liver enzymes and amylase and lipase to be followed. Should her abdominal pain recur or her enzymes remain elevated, then further workup would be necessary. Thank you for asking me to participate in the care of this patient. Luis Rodriguez M.D. DR: REG JOB#: [id number] CC: [place]
[2019-02-24] VITALS: BP 99/62
[2019-02-24 07:13] LABS: BASOPHILS % (AUTO) 0.9 % (0.0-2.0); EOSINOPHILS % (AUTO) 7.8 % (0.0-3.0); HEMATOCRIT 35.8 % (37.0-47.0); HEMOGLOBIN 12.2 G/DL (12.0-16.0); LYMPHOCYTES % (AUTO) 26.7 % (20.0-45.0); MEAN CORPUSCULAR VOLUME 91 FL (80-99); MONOCYTES % (AUTO) 11.9 % (1.0-10.0); NEUTROPHILS % (AUTO) 52.7 % (45.0-75.0); PLATELET COUNT 216 K/UL (150-450); RED BLOOD COUNT 3.92 M/UL (4.20-5.40); RED CELL DISTRIBUTION WIDTH 11.7 % (11.6-14.8); WHITE BLOOD COUNT 6.7 K/UL (4.8-10.8)
[2019-02-24 07:17] LABS: ALANINE AMINOTRANSFERASE 369 U/L (12-78); ALBUMIN 3.3 G/DL (3.4-5.0); ALKALINE PHOSPHATASE 263 U/L (46-116); AMYLASE 166 U/L (25-115); ANION GAP 10 mmol/L (5-15); ASPARTATE AMINO TRANSFERASE 90 U/L (15-37); BILIRUBIN,TOTAL 0.8 MG/DL (0.2-1.0); BLOOD UREA NITROGEN 21 mg/dL (7-18); CALCIUM 8.7 MG/DL (8.5-10.1); CARBON DIOXIDE 22 MMOL/L (21-32); CHLORIDE 108 MMOL/L (98-107); CREATININE 0.7 MG/DL (0.55-1.30); POTASSIUM 3.7 MMOL/L (3.5-5.1); SODIUM 140 MMOL/L (136-145)
--- NOTE | 2019-02-24 07:39 | NUR ---
HAND-OFF: Report given to Sharona Sims RN.
--- NOTE | 2019-02-24 07:56 | NUR ---
NURSE NOTES: pt in bed with no sob nor in any form of distress noted. breathing regular and unlabored. denies pain at this time. will continue to monitor
--- NOTE | 2019-02-24 08:06 | General Progress Note ---
Assessment/Plan Assessment/Plan: likely passed stone pancreatitis resolving PLAN clears? pain control dc in am if stable impression, plan, and exam edited and reviewed in detail care discussed with RN Subjective Allergies: Coded Allergies: MEPERIDINE (Verified Allergy, Intermediate, Rash, 02/23/19) Subjective overall better MRI noted care reviewed Objective Last 24 Hour Vital Signs Date Time Temp Pulse Resp B/P (MAP) Pulse Ox O2 Delivery O2 Flow Rate FiO2 02/24/19 00:00 98.0 75 16 99/62 (74) 99 02/23/19 21:00 Room Air 02/23/19 20:00 99.1 70 16 109/73 (85) 97 02/23/19 16:00 98.6 72 18 104/70 (81) 98 02/23/19 12:59 98.1 68 18 132/78 (96) 97 02/23/19 12:38 98.3 02/23/19 09:32 Room Air Intake and Output 02/23/19 02/24/19 19:00 07:00 Intake Total 900 ml 700 ml Balance 900 ml 700 ml IV Total 900 ml 700 ml # Voids 3 3 Laboratory Tests 02/24/19 05:10: White Blood Count 6.7, Red Blood Count 3.92L, Hemoglobin 12.2, Hematocrit 35.8L , Mean Corpuscular Volume 91, Mean Corpuscular Hemoglobin 31.0, Mean Corpuscular Hemoglobin Concent 33.9, Red Cell Distribution Width 11.7, Platelet Count 216, Mean Platelet Volume 8.0, Neutrophils (%) (Auto) 52.7, Lymphocytes (% ) (Auto) 26.7, Monocytes (%) (Auto) 11.9H, Eosinophils (%) (Auto) 7.8H, Basophils (%) (Auto) 0.9, Sodium Level 140, Potassium Level 3.7, Chloride Level 108H, Carbon Dioxide Level 22, Anion Gap 10, Blood Urea Nitrogen 21H, Creatinine 0.7, Estimat Glomerular Filtration Rate > 60, Glucose Level 60L, Calcium Level 8.7, Total Bilirubin 0.8, Aspartate Amino Transf (AST/SGOT) 90H, Alanine Aminotransferase (ALT/SGPT) 369H, Alkaline Phosphatase 263H, Total Protein 6.6, Albumin 3.3L, Globulin 3.3, Albumin/Globulin Ratio 1.0, Amylase Level 166H, Lipase 1068H Height (Feet): 5 Height (Inches): 2.00 Weight (Pounds): 169 Objective WDWN NAD clear breath sounds bilaterally without rhonchi or wheeze [id number] without MRG NABS reduced tenderness no CCE nonfocal Miguel Banda MD Feb 24, 2019 08:06
[2019-02-24 08:37] VITALS: BP 110/68
--- NOTE | 2019-02-24 08:40 | Surgery Progress Note ---
Surgery Progress Note Subjective Additional Comments labs improved MRI noted states no pain today asymptomatic Objective Last 24 Hour Vital Signs Date Time Temp Pulse Resp B/P (MAP) Pulse Ox O2 Delivery O2 Flow Rate FiO2 02/24/19 08:37 98.3 79 18 110/68 (82) 99 02/24/19 00:00 98.0 75 16 99/62 (74) 99 02/23/19 21:00 Room Air 02/23/19 20:00 99.1 70 16 109/73 (85) 97 02/23/19 16:00 98.6 72 18 104/70 (81) 98 02/23/19 12:59 98.1 68 18 132/78 (96) 97 02/23/19 12:38 98.3 02/23/19 09:32 Room Air I&O Intake and Output 02/23/19 02/24/19 19:00 07:00 Intake Total 900 ml 700 ml Balance 900 ml 700 ml IV Total 900 ml 700 ml # Voids 3 3 Cardiovascular: RSR Respiratory: clear Abdomen: soft, flat, non-tender, present bowel sounds, non-distended Extremities: no edema, no tenderness, no cyanosis Laboratory Tests Test 02/24/19 05:10 White Blood Count 6.7 K/UL (4.8-10.8) Red Blood Count 3.92 M/UL (4.20-5.40) L Hemoglobin 12.2 G/DL (12.0-16.0) Hematocrit 35.8 % (37.0-47.0) L Mean Corpuscular Volume 91 FL (80-99) Mean Corpuscular Hemoglobin 31.0 PG (27.0-31.0) Mean Corpuscular Hemoglobin Concent 33.9 G/DL (32.0-36.0) Red Cell Distribution Width 11.7 % (11.6-14.8) Platelet Count 216 K/UL (150-450) Mean Platelet Volume 8.0 FL (6.5-10.1) Neutrophils (%) (Auto) 52.7 % (45.0-75.0) Lymphocytes (%) (Auto) 26.7 % (20.0-45.0) Monocytes (%) (Auto) 11.9 % (1.0-10.0) H Eosinophils (%) (Auto) 7.8 % (0.0-3.0) H Basophils (%) (Auto) 0.9 % (0.0-2.0) Sodium Level 140 MMOL/L (136-145) Potassium Level 3.7 MMOL/L (3.5-5.1) Chloride Level 108 MMOL/L (98-107) H Carbon Dioxide Level 22 MMOL/L (21-32) Anion Gap 10 mmol/L (5-15) Blood Urea Nitrogen 21 mg/dL (7-18) H Creatinine 0.7 MG/DL (0.55-1.30) Estimat Glomerular Filtration Rate > 60 mL/min (>60) Glucose Level 60 MG/DL (74-106) L Calcium Level 8.7 MG/DL (8.5-10.1) Total Bilirubin 0.8 MG/DL (0.2-1.0) Aspartate Amino Transf (AST/SGOT) 90 U/L (15-37) H Alanine Aminotransferase (ALT/SGPT) 369 U/L (12-78) H Alkaline Phosphatase 263 U/L (46-116) H Total Protein 6.6 G/DL (6.4-8.2) Albumin 3.3 G/DL (3.4-5.0) L Globulin 3.3 g/dL Albumin/Globulin Ratio 1.0 (1.0-2.7) Amylase Level 166 U/L (25-115) H Lipase 1068 U/L (73-393) H Plan Problems: (1) Pancreatitis due to common bile duct stone (2) Abdominal pain Assessment & Plan: 30-year-old female with abdominal pain nausea vomiting. Leukocytosis normal. LFTs elevated. T bili elevated on admission. Elevated amylase and lipase indicative of pancreatitis. Ultrasound and CT noted. Potentially retained common bile duct stone which is passed or still present within the duct. Exam improved. Overall improved. No acute surgical intervention indicated at this time. Will discuss with GI as patient should probably have an MRCP to ensure common bile duct clear. Following that if necessary ERCP if stone present. If common duct cleared and improving can resume diet. Trend labs. We will follow with recommendations. Thank you for this consultation mrcp noted exam improved asymptomatic labs improved start trial diet trend labs iv fluids will follow with recs thank you Tino House Feb 24, 2019 08:40
[2019-02-24] MEDS: Simethicone 80mg tab ORAL PRN ×2 (09:35→20:35)
[2019-02-24] MEDS: Pantoprazole Inj IVP SCH (09:35)
--- NOTE | 2019-02-24 11:00 | GI Progress Note ---
Assessment/Plan Problems: (1) Abdominal pain ICD Codes: R10.9 - Unspecified abdominal pain SNOMED: 16086832 (2) Pancreatitis due to common bile duct stone ICD Codes: K85.90 - Acute pancreatitis without necrosis or infection, unspecified; K80.50 - Calculus of bile duct without cholangitis or cholecystitis without obstruction SNOMED: 68158540 Status: progressing Status Narrative Discussed with Dr. Goss. Assessment/Plan MRCP reviewed. Acute pancreatitis. Negative exam otherwise CLD, advance as tolerated anticipate dc tomorrow pain management ppi zofran prn trend LFTs, lipase The patient was seen and examined at bedside and all new and available data was reviewed in the patients chart. I agree with the above findings, impression and plan. (Patient seen earlier today. Signature stamp does not reflect patient encounter time.). - Beni Goss MD Subjective Subjective abdominal pain improved Objective Last 24 Hour Vital Signs Date Time Temp Pulse Resp B/P (MAP) Pulse Ox O2 Delivery O2 Flow Rate FiO2 02/24/19 09:00 Room Air 02/24/19 08:37 98.3 79 18 110/68 (82) 99 02/24/19 00:00 98.0 75 16 99/62 (74) 99 02/23/19 21:00 Room Air 02/23/19 20:00 99.1 70 16 109/73 (85) 97 02/23/19 16:00 98.6 72 18 104/70 (81) 98 02/23/19 12:59 98.1 68 18 132/78 (96) 97 02/23/19 12:38 98.3 Intake and Output 02/23/19 02/24/19 19:00 07:00 Intake Total 900 ml 700 ml Balance 900 ml 700 ml IV Total 900 ml 700 ml # Voids 3 3 Laboratory Tests Test 02/24/19 05:10 White Blood Count 6.7 K/UL (4.8-10.8) Red Blood Count 3.92 M/UL (4.20-5.40) L Hemoglobin 12.2 G/DL (12.0-16.0) Hematocrit 35.8 % (37.0-47.0) L Mean Corpuscular Volume 91 FL (80-99) Mean Corpuscular Hemoglobin 31.0 PG (27.0-31.0) Mean Corpuscular Hemoglobin Concent 33.9 G/DL (32.0-36.0) Red Cell Distribution Width 11.7 % (11.6-14.8) Platelet Count 216 K/UL (150-450) Mean Platelet Volume 8.0 FL (6.5-10.1) Neutrophils (%) (Auto) 52.7 % (45.0-75.0) Lymphocytes (%) (Auto) 26.7 % (20.0-45.0) Monocytes (%) (Auto) 11.9 % (1.0-10.0) H Eosinophils (%) (Auto) 7.8 % (0.0-3.0) H Basophils (%) (Auto) 0.9 % (0.0-2.0) Sodium Level 140 MMOL/L (136-145) Potassium Level 3.7 MMOL/L (3.5-5.1) Chloride Level 108 MMOL/L (98-107) H Carbon Dioxide Level 22 MMOL/L (21-32) Anion Gap 10 mmol/L (5-15) Blood Urea Nitrogen 21 mg/dL (7-18) H Creatinine 0.7 MG/DL (0.55-1.30) Estimat Glomerular Filtration Rate > 60 mL/min (>60) Glucose Level 60 MG/DL (74-106) L Calcium Level 8.7 MG/DL (8.5-10.1) Total Bilirubin 0.8 MG/DL (0.2-1.0) Aspartate Amino Transf (AST/SGOT) 90 U/L (15-37) H Alanine Aminotransferase (ALT/SGPT) 369 U/L (12-78) H Alkaline Phosphatase 263 U/L (46-116) H Total Protein 6.6 G/DL (6.4-8.2) Albumin 3.3 G/DL (3.4-5.0) L Globulin 3.3 g/dL Albumin/Globulin Ratio 1.0 (1.0-2.7) Amylase Level 166 U/L (25-115) H Lipase 1068 U/L (73-393) H Height (Feet): 5 Height (Inches): 2.00 Weight (Pounds): 169 General Appearance: WD/WN, no apparent distress, alert Cardiovascular: normal rate Respiratory/Chest: normal breath sounds, no respiratory distress Abdominal Exam: normal bowel sounds, non tender, soft Extremities: normal range of motion, non-tender Sherice Pepe NP Feb 24, 2019 11:00
[2019-02-24 12:00] VITALS: BP 113/75
[2019-02-24] MEDS ORDERED: Loperamide 2mg cap ORAL PRN (12:45)
--- NOTE | 2019-02-24 14:40 | NUR ---
*-* INSURANCE *-* ALL CLINICALS AND REVIEWS HAVE BEEN FAXED TO: TATIANNA RASCON P: [phone] F: [phone]
[2019-02-24 16:39] VITALS: BP 115/80
--- NOTE | 2019-02-24 19:01 | NUR ---
CASE MANAGEMENT: REVIEW SI: S/P CHOLECYSTECTOMY . PANCREATITIS D/T COMMON BILE DUCT STONE MRCP SHOWS ACUTE PANCREATITIS T 98.2 HR 77 RR 18 BP 99/62 SAT 99% ROOM AIR AST 90 ALT 367 ALK PHOS 263 AMYLASE 166 LIPASE 1068 IS: PROTONIX IV QD NS IVF @ 100ML/HR MORPHINE 4MG IV Q3HR ZOFRAN IV Q6HR PRN FULL LIQUID DIET MED/SURG STATUS DCP: PATIENT IS FROM HOME
--- NOTE | 2019-02-24 19:11 | NUR ---
HAND-OFF: Report given to TRAVIS Joya.
--- NOTE | 2019-02-24 19:54 | NUR ---
NURSE NOTES: Received patient in bed. AAO x 4, ambulatory, on room air. IV site intact and running NS 100cc/hr. Pt c/o abd gas pain. Pt is on full liquid diet. Bed lowest position, locked, alarm on, side rails up x 2, call light within reach. Will continue to monitor.
[2019-02-24 20:00] VITALS: BP 117/64
[2019-02-25] VITALS: BP 108/72
[2019-02-25 06:55] LABS: ALANINE AMINOTRANSFERASE 265 U/L (12-78); ALBUMIN 3.2 G/DL (3.4-5.0); ALBUMIN/GLOBULIN RATIO 0.9 (1.0-2.7); ALKALINE PHOSPHATASE 237 U/L (46-116); AMYLASE 83 U/L (25-115); ANION GAP 8 mmol/L (5-15); ASPARTATE AMINO TRANSFERASE 49 U/L (15-37); BILIRUBIN,TOTAL 0.5 MG/DL (0.2-1.0); BLOOD UREA NITROGEN 6 mg/dL (7-18); CALCIUM 8.6 MG/DL (8.5-10.1); CARBON DIOXIDE 23 MMOL/L (21-32); CHLORIDE 109 MMOL/L (98-107); CREATININE 0.5 MG/DL (0.55-1.30); POTASSIUM 3.6 MMOL/L (3.5-5.1); SODIUM 140 MMOL/L (136-145)
--- NOTE | 2019-02-25 07:38 | NUR ---
NURSE NOTES: Report received from TRAVIS Joya. AOx4. In RA. Denies SOB. IV running NS @100. Bed on lowest position, side rails upx2, brakes engaged. Call light within easy reach.
--- NOTE | 2019-02-25 08:07 | NUR ---
HAND-OFF: Report given to TRAVIS Joyner.
[2019-02-25 09:00] VITALS: BP 119/82
[2019-02-25] MEDS: Pantoprazole Inj IVP SCH (09:26)
--- NOTE | 2019-02-25 10:09 | General Progress Note ---
Assessment/Plan Status: progressing Assessment/Plan: likely passed stone pancreatitis resolving PLAN dc home maintain clears and bland diet follow up labs with PMD return to er if symptoms recur cleared by gi impression, plan, and exam edited and reviewed in detail care discussed with RN Subjective Allergies: Coded Allergies: MEPERIDINE (Verified Allergy, Intermediate, Rash, 02/23/19) Subjective overall better tolerating po care reviewed Objective Last 24 Hour Vital Signs Date Time Temp Pulse Resp B/P (MAP) Pulse Ox O2 Delivery O2 Flow Rate FiO2 02/25/19 00:00 98.1 62 18 108/72 (84) 99 02/24/19 21:00 Room Air 02/24/19 20:00 97.7 66 16 117/64 (81) 98 02/24/19 16:39 98.3 77 18 115/80 (92) 96 02/24/19 12:00 98.2 75 18 113/75 (88) 97 Intake and Output 02/24/19 02/25/19 19:00 07:00 Intake Total 1100 ml 700 ml Balance 1100 ml 700 ml IV Total 1100 ml 700 ml # Voids 2 # Bowel Movements 1 1 Laboratory Tests 02/25/19 05:47: Sodium Level 140, Potassium Level 3.6, Chloride Level 109H, Carbon Dioxide Level 23, Anion Gap 8, Blood Urea Nitrogen 6L, Creatinine 0.5L, Estimat Glomerular Filtration Rate > 60, Glucose Level 72L, Calcium Level 8.6, Total Bilirubin 0.5, Aspartate Amino Transf (AST/SGOT) 49H, Alanine Aminotransferase ( ALT/SGPT) 265H, Alkaline Phosphatase 237H, Total Protein 6.8, Albumin 3.2L, Globulin 3.6, Albumin/Globulin Ratio 0.9L, Amylase Level 83, Lipase 540H Height (Feet): 5 Height (Inches): 2.00 Weight (Pounds): 173 Objective WDWN NAD clear breath sounds bilaterally without rhonchi or wheeze [id number] without MRG NABS reduced tenderness no CCE nonfocal Miguel Banda MD Feb 25, 2019 10:09
--- NOTE | 2019-02-25 10:58 | GI Progress Note ---
Assessment/Plan Problems: (1) Abdominal pain ICD Codes: R10.9 - Unspecified abdominal pain SNOMED: 18363777 (2) Pancreatitis due to common bile duct stone ICD Codes: K85.90 - Acute pancreatitis without necrosis or infection, unspecified; K80.50 - Calculus of bile duct without cholangitis or cholecystitis without obstruction SNOMED: 30376606 Status: stable Status Narrative Discussed with Dr. Goss. Assessment/Plan MRCP reviewed. Acute pancreatitis. Negative exam otherwise okay for DC per GI standpoint tolerated diet pain management ppi zofran prn trend LFTs, lipase The patient was seen and examined at bedside and all new and available data was reviewed in the patients chart. I agree with the above findings, impression and plan. (Patient seen earlier today. Signature stamp does not reflect patient encounter time.). - Beni Goss MD Subjective Subjective abdominal pain improved had episode of bloody stool which has resolved. Objective Last 24 Hour Vital Signs Date Time Temp Pulse Resp B/P (MAP) Pulse Ox O2 Delivery O2 Flow Rate FiO2 02/25/19 09:00 Room Air 02/25/19 09:00 98.3 80 18 119/82 (94) 98 02/25/19 00:00 98.1 62 18 108/72 (84) 99 02/24/19 21:00 Room Air 02/24/19 20:00 97.7 66 16 117/64 (81) 98 02/24/19 16:39 98.3 77 18 115/80 (92) 96 02/24/19 12:00 98.2 75 18 113/75 (88) 97 Intake and Output 02/24/19 02/25/19 19:00 07:00 Intake Total 1100 ml 700 ml Balance 1100 ml 700 ml IV Total 1100 ml 700 ml # Voids 2 # Bowel Movements 1 1 Laboratory Tests Test 02/25/19 05:47 Sodium Level 140 MMOL/L (136-145) Potassium Level 3.6 MMOL/L (3.5-5.1) Chloride Level 109 MMOL/L (98-107) H Carbon Dioxide Level 23 MMOL/L (21-32) Anion Gap 8 mmol/L (5-15) Blood Urea Nitrogen 6 mg/dL (7-18) L Creatinine 0.5 MG/DL (0.55-1.30) L Estimat Glomerular Filtration Rate > 60 mL/min (>60) Glucose Level 72 MG/DL (74-106) L Calcium Level 8.6 MG/DL (8.5-10.1) Total Bilirubin 0.5 MG/DL (0.2-1.0) Aspartate Amino Transf (AST/SGOT) 49 U/L (15-37) H Alanine Aminotransferase (ALT/SGPT) 265 U/L (12-78) H Alkaline Phosphatase 237 U/L (46-116) H Total Protein 6.8 G/DL (6.4-8.2) Albumin 3.2 G/DL (3.4-5.0) L Globulin 3.6 g/dL Albumin/Globulin Ratio 0.9 (1.0-2.7) L Amylase Level 83 U/L (25-115) Lipase 540 U/L (73-393) H Height (Feet): 5 Height (Inches): 2.00 Weight (Pounds): 173 General Appearance: WD/WN, no apparent distress, alert Cardiovascular: normal rate Respiratory/Chest: normal breath sounds, no respiratory distress Abdominal Exam: normal bowel sounds, non tender, soft Extremities: normal range of motion, non-tender Sherice Pepe NP Feb 25, 2019 10:58
--- NOTE | 2019-02-25 11:25 | NUR ---
NURSE NOTES: Pt. in stable condition. VS stable with BP117/79, P78, RR 17, O2 99. No pain or any discomfort. Aware of discharge planning. Per MD no hospital meds. Discharge teaching done. Pt. to follow up with primary MD within a week. IV removed, intact. Name band removed. Belongings checked signed and filed. Discharge package given to Pt. Left floor safe via wheelchair, accompanied by RN.
--- NOTE | 2019-02-25 17:55 | Surgery Progress Note ---
Surgery Progress Note Subjective Additional Comments Patient seen examined at bedside this morning. States she feels better. Has 0 pain. Tolerated diet without any issues. Passing gas and flatus. Had bowel movement. No nausea vomiting fever chills. Labs improved. Objective Last 24 Hour Vital Signs Date Time Temp Pulse Resp B/P (MAP) Pulse Ox O2 Delivery O2 Flow Rate FiO2 02/25/19 09:00 Room Air 02/25/19 09:00 98.3 80 18 119/82 (94) 98 02/25/19 00:00 98.1 62 18 108/72 (84) 99 02/24/19 21:00 Room Air 02/24/19 20:00 97.7 66 16 117/64 (81) 98 I&O Intake and Output 02/24/19 02/25/19 19:00 07:00 Intake Total 1100 ml 700 ml Balance 1100 ml 700 ml IV Total 1100 ml 700 ml # Voids 2 # Bowel Movements 1 1 Dressing: dry Wound: clean Cardiovascular: RSR Respiratory: clear Abdomen: soft, flat, non-tender, present bowel sounds Extremities: no edema, no tenderness, no cyanosis Laboratory Tests Test 02/25/19 05:47 Sodium Level 140 MMOL/L (136-145) Potassium Level 3.6 MMOL/L (3.5-5.1) Chloride Level 109 MMOL/L (98-107) H Carbon Dioxide Level 23 MMOL/L (21-32) Anion Gap 8 mmol/L (5-15) Blood Urea Nitrogen 6 mg/dL (7-18) L Creatinine 0.5 MG/DL (0.55-1.30) L Estimat Glomerular Filtration Rate > 60 mL/min (>60) Glucose Level 72 MG/DL (74-106) L Calcium Level 8.6 MG/DL (8.5-10.1) Total Bilirubin 0.5 MG/DL (0.2-1.0) Aspartate Amino Transf (AST/SGOT) 49 U/L (15-37) H Alanine Aminotransferase (ALT/SGPT) 265 U/L (12-78) H Alkaline Phosphatase 237 U/L (46-116) H Total Protein 6.8 G/DL (6.4-8.2) Albumin 3.2 G/DL (3.4-5.0) L Globulin 3.6 g/dL Albumin/Globulin Ratio 0.9 (1.0-2.7) L Amylase Level 83 U/L (25-115) Lipase 540 U/L (73-393) H Plan Problems: (1) Pancreatitis due to common bile duct stone (2) Abdominal pain Assessment & Plan: 30-year-old female with abdominal pain nausea vomiting. Leukocytosis normal. LFTs elevated. T bili elevated on admission. Elevated amylase and lipase indicative of pancreatitis. Ultrasound and CT noted. Potentially retained common bile duct stone which is passed or still present within the duct. Exam improved. Overall improved. No acute surgical intervention indicated at this time. Will discuss with GI as patient should probably have an MRCP to ensure common bile duct clear. Following that if necessary ERCP if stone present. If common duct cleared and improving can resume diet. Trend labs. We will follow with recommendations. Thank you for this consultation mrcp noted exam improved asymptomatic labs improved Diet as tolerated trend labs as outpatient follow-up with her primary surgeon Dr. Pamella Shoemaker to [place] from surgical standpoint with follow-up with her primary surgeon upon discharge. will follow with recs thank you Tino House Feb 25, 2019 17:55
--- NOTE | 2019-02-26 10:28 | Discharge Summary ---
Discharge Summary Discharge Summary _ DATE OF ADMISSION: 02/22/2019 DATE OF DISCHARGE: 02/25/2019 DISCHARGED BY: Dr. Banda REASON FOR ADMISSION: 38 years old female underwent laparoscopic cholecystectomy 2 weeks ago. Patient noted to have post operatively abdominal pain and discomfort. Patient was seen and evaluated in the emergency department and found to have elevated liver enzymes and elevated pancreatic enzymes. Laboratory work-up revealed no leukocytosis, stable hemoglobin and hematocrit. AST 651, ALT 905. Alkaline phosphatase 404. Total bilirubin 1.7, direct bilirubin 1.1. Lipase above 2000. CT of the abdomen and pelvis revealed acute pancreatitis. Status post cholecystectomy. Left ovarian cyst. Fatty liver. Abdominal ultrasound demonstrated fatty liver. Pancreas was not visualized well. Both kidneys appeared to be unremarkable. No hydronephrosis . Patient received analgesic and antiemetic, started on IV fluids and subsequently admitted to medical surgical floor for further management. CONSULTANTS: GI [facility]: Patient admitted to medical surgical floor. Patient was kept n.p.o. with IV hydration. GI specialist and surgeon closely followed. The next day patient undergone abdominal MRI , which revealed acute pancreatitis , otherwise negative exam. LFT, lipase and amylase were closely monitored. Patient initially was kept n.p.o. Pain management was addressed. Symptomatic treatment provided Patient felt better the next day. Per GI specialist, patient likely passed the stone. Patient started on liquid diet and was advanced as tolerated. GI prophylaxis with PPI provided. Surgeon closely followed. Serial abdominal exams improved. Labs improved . Patient was able to tolerate diet. Pain diminished significantly and was controlled. Prior to discharge , patient remained afebrile, no leukocytosis. AST from 651 down to 49 , ALT from 905 down to 265 , total bilirubin down to 0.5. Lipase down to 540 and amylase returned to normal . Patient clinically stabilized and was ready for discharge home. FINAL DIAGNOSES: Acute pancreatitis due to common bile duct stone -resolved Abdominal pain -resolved DISCHARGE MEDICATIONS: See Medication Reconciliation list. DISCHARGE INSTRUCTIONS: Patient was discharged home. Follow up with primary care provider in one week. Follow up with primary surgeon Dr Can I have been assigned to dictate discharge summary for this account. I was not involved in the patient's management. Phoebe Gayle NP Feb 26, 2019 10:28
--- NOTE | 2019-02-26 16:47 | NUR ---
*-* INSURANCE *-* DISCHARGE SUMMARY HAS BEEN FAXED TO: TATIANNA RASCON P: [phone] F: [phone]
== END 2019-02-25 11:25 | disposition home or self-care (01) | DRG 439 ==
LOC: EDBD 13:26 → EMR 14:04 → 2E 14:17 → EDBEDREQ 15:25 → 4E 16:38
DX: K85.10 Biliary acute pancreatitis without necrosis or infection (principal); K91.86 Retained cholelithiasis following cholecystectomy; Y83.8 Other surgical procedures as the cause of abnormal reaction of the patient, or of later complication, without mention of misadventure at the time of the procedure; Z88.8 Allergy status to other drugs, medicaments and biological substances; K76.0 Fatty (change of) liver, not elsewhere classified
CPT/HCPCS: 36415; 74177; 74181; 76700; 80053; 81003; 81025; 82150; 82248; 83690; 85025; 85610; 85651; 85730; 86140; 96361; 96374; 96375; 96376; 99285; J2405; J2765